=== PATIENT | female | born 2005 | race Two or more races ===

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

== ENCOUNTER 2024-04-13 03:04 | Emergency (ER) | payer OTHER ==
--- NOTE | 2024-04-13 04:22 | ED Physician Documentation ---
PD HPI MHE - Stated complaint Stated Complaint: MHE - Chief complaint Chief Complaint: MHE - History obtained from History obtained from: Patient - Additional information Additional information: HPI from patient. Patient complains of insomnia for the past 2-3 nights. She has recently been having increasingly racing thoughts and, at times, has intrusive thoughts; she says this has been over the past few weeks. In describing the symptoms, does not sound like she is having auditory hallucinations; she denies "hearing voices" but, she says that when she gets upset with other people, she experience s sudden unwelcome thoughts of sudden anger out of proportion to the situation and thus she is increasingly anxious about these intrusive thoughts. Denies SI, HI. PD PAST MEDICAL HISTORY - Past Medical History Past Medical History: Yes Psych: Depression, Anxiety, Bipolar disorder - Past Surgical History Past Surgical History: Yes - Present Medications Home Medications: Ambulatory Orders Medication Instructions Recorded Confirmed LORazepam [Lorazepam] 1 mg PO Q8HR PRN #10 tab 04/13/24 - Allergies Allergies/Adverse Reactions: Allergies Allergy/AdvReac Type Severity Reaction Status Date / Time No Known Drug Allergies Allergy Verified 04/13/24 03:25 - Social History Does the pt smoke?: No Smoking Status: Never smoker Does the pt drink ETOH?: No Does the pt have substance abuse?: No - Immunizations Immunizations are current?: Yes - POLST Patient has POLST: No PD ED PE NORMAL - Vitals Vital signs reviewed: Yes - General General: Alert and oriented X 3, No acute distress, Well developed/nourished - Cardiac Cardiac: RRR, No murmur - Respiratory Respiratory: No respiratory distress, Clear bilaterally - Neuro Neuro: Alert and oriented X 3, mill dresser 2-12 intact, No motor deficit, No sensory deficit, Normal speech Eye Opening: Spontaneous Motor: Obeys Commands Verbal: Oriented GCS Score: 15 - Psych Psych: Normal mood, Normal affect Results - Vitals Vitals: Oxygen O2 Source Room air PD Medical Decision Making - ED course Complexity details: considered differential, d/w patient ED course: Patient is calm, cooperative, oriented x 3. She is in NAD. She indicates to me that her goal for this ED visit is for prescription medication(s) to help with her racing and intrusive thoughts as well as insomnia. She tells me that she had she has had similar symptoms in the past which had been controlled with prescription medications, but she cannot recall which medications these were. She says she stopped taking these medications approximately 6 months ago when she moved from [place] to [facility]. She says one of them was quetiapine although she indicates this was mostly to help with sleep rather than a daytime medication, and that she was also on one or two other medications for these symptoms and cannot recall what medications they were. I do not see any records in [facility] to indicate which prescription medications she has had in the past. I discussed option of telemetry psychiatric consult which patient declines. She strongly denies SI, HI. I recommended lorazepam for short-term symptom control and she agrees with this. She is advised that the lorazepam is only for short- term and as-needed basis and that she needs to follow up with a primary care provider as soon as she can arrange for reevaluation to discuss medication(s) better suited for long-term control of these symptoms. Departure - Departure Disposition: 01 Home, Self Care Clinical Impression: Anxiety Condition: Good Instructions: Anxiety Disorder Prescriptions: LORazepam [Lorazepam] 1 mg PO Q8HR PRN #10 tab PRN Reason: Anxiety Comments: I have electronically submitted a prescription for lorazepam to the [facility] pharmacy in [place]. This is a medication that can help with anxiety and ra cing thoughts, but it is only meant to be a short-term medication and only to be used as needed (per the prescription label instructions) for anxiety/racing thoughts. It sounds like you might benefit from other, long-term medications to help control your symptoms, and what medication or medications would be best for your symptoms would best be determined by a mental health professional. You should seek follow-up with your primary care provider to obtain referral to psychiatry or, if you have a psychiatrist, contact their office to arrange for the next available appointment. Forms: PCP List Discharge Date/Time: 04/13/24 06:25
[2024-04-13 06:30] VITALS: BP 121/72; O2SAT 99
== END 2024-04-13 06:25 | disposition home or self-care (01) ==
LOC: ED 03:04
DX: F41.9 Anxiety disorder, unspecified (principal)
CPT/HCPCS: 99282; 99283